=== PATIENT | male | born 1955 | race Caucasian/White ===

== ENCOUNTER 2021-04-09 08:43 | Outpatient (CLI) | payer BC ==
[2021-04-09 17:28] LABS: SARS-CoV-2 PCR by NAA Not Detected (NotDetected)
== END 2021-04-09 08:44 | disposition home or self-care (01) ==
LOC: LABBT 08:43
PROVIDERS: ATTEND Ophthalmology Retina Specialist
DX: H33.22 Serous retinal detachment, left eye (principal); Z20.822 Contact with and (suspected) exposure to COVID-19
CPT/HCPCS: U0003; U0005

== ENCOUNTER 2021-04-10 08:02 | Day surgery (SDC) | payer BC ==
[2021-04-09 09:38] VITALS: BMI 22.1
[~2021-04-10 08:02] MED LIST: Fentanyl 250 MCG/5 ML VIAL ONE; Fluorouracil 100 MG, Enoxaparin Sodium 25 MG, EPINEPHrine 0.3 MG in Ophthalmic Irrigati... IRR SCH; Midazolam HCl 2 mg/2 ml Vial ONE
[2021-04-10] MEDS ORDERED: Cyclopentolate 1% Opth Drop 2 ML BOT ONE (08:40)
[2021-04-10] MEDS ORDERED: Phenylephrine 2.5% Ophth Soln 5 ML BOT ONE (08:40)
[2021-04-10] MEDS ORDERED: CEFAZOLIN 1 GM VIAL ONE (10:37)
[2021-04-10] MEDS ORDERED: Lidocaine 4% PF 5 ML AMP ONE (10:37)
[2021-04-10] MEDS ORDERED: PROPOFOL 200 MG/20 ML VIAL ONE (10:37)
[2021-04-10] MEDS ORDERED: Maxitrol 0.1% Opth Oint 3.5 GM TUBE ONE (10:37)
[2021-04-10] MEDS ORDERED: Enoxaparin Sodium 30 MG/0.3 ML SYRINGE ONE (10:37)
[2021-04-10] MEDS ORDERED: Bupivacaine 0.75% 10 ML VIAL ONE (10:37)
[2021-04-10] MEDS ORDERED: Lidocaine 1% PF 5 ML VIAL ONE (10:37)
[2021-04-10] MEDS ORDERED: Triamcinolone 40 MG/ML VIAL ONE (10:37)
== END 2021-04-10 11:55 | disposition home or self-care (01) ==
LOC: SDC 08:02
PROVIDERS: ATTEND Ophthalmology Retina Specialist
PROC: 08T53ZZ Resection of Left Vitreous, Percutaneous Approach (ICD-10-PCS; principal; 2021-04-10)
DX: H33.012 Retinal detachment with single break, left eye (principal); I10 Essential (primary) hypertension; J45.909 Unspecified asthma, uncomplicated; Z79.82 Long term (current) use of aspirin; Z79.899 Other long term (current) drug therapy; Z88.0 Allergy status to penicillin; Z88.5 Allergy status to narcotic agent; Z88.8 Allergy status to other drugs, medicaments and biological substances
CPT/HCPCS: 67025; J0690; J1650; J2250; J2704; J3010; J3301; J3490